=== PATIENT | female | born 1995 | race Two or more races ===

== ENCOUNTER 2016-12-21 21:58 | Emergency (ER) | payer OTHER ==
--- NOTE | 2016-12-21 22:18 | EDM.PDOC ---
ED HPI GENERAL MEDICAL PROBLEM - General Chief Complaint: ENT Problem Stated Complaint: POSSIBLE STREP THROAT [id number] Time Seen by Provider: 12/21/16 22:16 Source of Information: Reports: Patient History Limitations: Reports: No Limitations - History of Present Illness INITIAL COMMENTS - FREE TEXT/NARRATIVE: sore throat since yesterday. Throat Pain Score (Numeric/FACES): 4 - Related Data Allergies Allergy/AdvReac Type Severity Reaction Status Date / Time No Known Allergies Allergy Verified 12/21/16 22:15 Home Meds: Home Meds . [No Known Home Meds] 12/21/16 [History] Past Medical History - Past Health History Medical/Surgical History: Denies Medical/Surgical History - Infectious Disease History Infectious Disease History: Reports: Chicken Pox Social & Family History - Tobacco Use Smoking Status *Q: Former Smoker Used Tobacco, but Quit: No - Caffeine Use Caffeine Use: Reports: Coffee, Soda - Recreational Drug Use Recreational Drug Use: No ED ROS ENT - Review of Systems Review Of Systems: ROS reveals no pertinent complaints other than HPI. ED EXAM, ENT - Physical Exam Exam: See Below Exam Limited By: No Limitations General Appearance: Alert, WD/WN, Mild Distress, Other (discomfort) Ears: Normal External Exam, Normal Canal, Hearing Grossly Normal, Normal TMs Nose: Normal Inspection Mouth/Throat: Pharyngeal Erythema Head: Atraumatic Neck: Non-Tender, Full Range of Motion Respiratory/Chest: No Respiratory Distress Cardiovascular: Regular Rate, Rhythm GI/Abdominal: Soft, Non-Tender Neurological: Alert, Oriented, Normal Cognition, Normal Gait, No Motor/Sensory Deficits Psychiatric: Normal Affect, Normal Mood Skin: Warm, Dry, Normal Color Lymphatic: No Adenopathy Course - Vital Signs Last Recorded V/S: Last Vital Signs Temp 36.1 C 12/21/16 22:03 Pulse 72 12/21/16 22:03 Resp 18 12/21/16 22:03 BP 127/76 12/21/16 22:03 Pulse Ox 100 12/21/16 22:03 - Orders/Labs/Meds Orders: Active Orders 24 hr Category Date Time Status CULTURE STREP A CONFIRMATION [RM] Stat Lab 12/21/16 22:12 Results STREP SCRN A RAPID W CULT CONF [RM] Stat Lab 12/21/16 22:12 Results - Re-Assessments/Exams Free Text/Narrative Re-Assessment/Exam: 12/21/16 22:29 results discussed with pt. Departure - Departure Time of Disposition: 22:29 Disposition: Home, Self-Care 01 Condition: Good Clinical Impression: Tonsillitis - Discharge Information Instructions: Tonsillitis, [id number] Forms: ED Department Discharge Additional Instructions: 1) avoid solid foods and scratchy foods 2) sleep as much as possible 3) follow up at clinic or recheck as needed rx given; z-ganga - My Orders Last 24 Hours: My Active Orders 12/21/16 22:12 CULTURE STREP A CONFIRMATION [RM] Stat STREP SCRN A RAPID W CULT CONF [RM] Stat - Assessment/Plan Last 24 Hours: My Active Orders 12/21/16 22:12 CULTURE STREP A CONFIRMATION [RM] Stat STREP SCRN A RAPID W CULT CONF [RM] Stat
[2016-12-21] MEDS ORDERED: Azithromycin 250 MG Tab PO ONE (22:33)
== END 2016-12-21 22:41 | disposition home or self-care (01) ==
LOC: DL.ED 21:58
DX: J03.90 Acute tonsillitis, unspecified (principal); Z87.891 Personal history of nicotine dependence
CPT/HCPCS: 87081; 87430; 99283; A9270

== ENCOUNTER 2016-12-23 19:20 | Emergency (ER) | payer OTHER ==
[2016-12-23] MEDS ORDERED: Ondansetron 4 MG Tab.DIS PO ONE ×2 (19:21→19:32)
[2016-12-23] MEDS ORDERED: Ondansetron 4 MG Tab.DIS ONE (19:33)
--- NOTE | 2016-12-23 19:36 | EDM.PDOC ---
ED HPI GENERAL MEDICAL PROBLEM - General Chief Complaint: General Stated Complaint: ABD PAINS, DIZZINESS [id number] Time Seen by Provider: 12/23/16 19:33 Source of Information: Reports: Patient History Limitations: Reports: No Limitations - History of Present Illness INITIAL COMMENTS - FREE TEXT/NARRATIVE: was here last pm, thought could make it back to work today but unable and got sent home. still nauseous but throat feels much better. Generalized Pain Score (Numeric/FACES): 2 - Related Data Allergies Allergy/AdvReac Type Severity Reaction Status Date / Time No Known Allergies Allergy Verified 12/23/16 19:31 Home Meds: Home Meds . [No Known Home Meds] 12/21/16 [History] Past Medical History - Past Health History Medical/Surgical History: Denies Medical/Surgical History - Infectious Disease History Infectious Disease History: Reports: Chicken Pox Social & Family History - Tobacco Use Smoking Status *Q: Never Smoker Used Tobacco, but Quit: No Second Hand Smoke Exposure: No - Caffeine Use Caffeine Use: Reports: None - Recreational Drug Use Recreational Drug Use: No ED ROS GENERAL - Review of Systems Review Of Systems: ROS reveals no pertinent complaints other than HPI. ED EXAM, GENERAL - Physical Exam Exam: See Below Exam Limited By: No Limitations General Appearance: Alert, WD/WN, Mild Distress, Other (discomfort) Ears: Hearing Grossly Normal Throat/Mouth: Normal Voice, No Airway Compromise Head: Atraumatic Neck: Non-Tender, Full Range of Motion Respiratory/Chest: No Respiratory Distress Cardiovascular: Regular Rate, Rhythm GI/Abdominal: Soft, Non-Tender, Other (minor periumb discomfort) Neurological: Alert, Oriented, Normal Cognition, Normal Gait, No Motor/Sensory Deficits Psychiatric: Normal Affect, Normal Mood Skin Exam: Warm, Dry, Normal Color Lymphatic: No Adenopathy Course - Vital Signs Last Recorded V/S: Last Vital Signs Temp 36.0 C 12/23/16 19:26 Pulse 68 12/23/16 19:26 Resp 18 12/23/16 19:26 BP 125/60 12/23/16 19:26 Pulse Ox 100 12/23/16 19:26 - Orders/Labs/Meds Orders: Active Orders 24 hr Category Date Time Status Ondansetron [Zofran ODT] Med 12/23/16 19:32 Once 4 mg PO ONETIME ONE Departure - Departure Time of Disposition: 19:35 Disposition: Home, Self-Care 01 Condition: Good Clinical Impression: Tonsillitis - Discharge Information Additional Instructions: 1) sleep as much as possible 2) drink lots of liquids 3) recheck as needed rx jenno; zofran 4mg ODT bid prn x 2 - My Orders Last 24 Hours: My Active Orders 12/23/16 19:32 Ondansetron [Zofran ODT] 4 mg PO ONETIME ONE - Assessment/Plan Last 24 Hours: My Active Orders 12/23/16 19:32 Ondansetron [Zofran ODT] 4 mg PO ONETIME ONE
== END 2016-12-23 19:38 | disposition home or self-care (01) ==
LOC: DL.ED 19:20
DX: J03.90 Acute tonsillitis, unspecified (principal); R10.33 Periumbilical pain
CPT/HCPCS: 99283; A9270

== ENCOUNTER 2017-04-07 13:58 | Emergency (ER) | payer MEDICAID, OTHER ==
[2017-04-07] MEDS ORDERED: Lidocaine 2% Viscous Solution 15 ML Cup PO ONE (14:37)
--- NOTE | 2017-04-07 15:09 | EDM.PDOC ---
Scribed by Nidia Dennis 04/07/17 0007 for Christopher Cantrell MD ED HPI GENERAL MEDICAL PROBLEM - General Chief Complaint: ENT Problem Stated Complaint: TOOTH ACHE Time Seen by Provider: 04/07/17 14:24 Source of Information: Reports: Patient, RN, RN Notes Reviewed History Limitations: Reports: No Limitations - History of Present Illness INITIAL COMMENTS - FREE TEXT/NARRATIVE: Patient presents with complaint of dental pain to the right lower molar for 2 days. She had a large cavity at that location and had a filling placed there recently, but the filling fell out after a couple of days. Denies any swelling or drainage. She has not been taking any medications because she is 5 weeks . 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 ED EXAM, ENT - Physical Exam Exam: See Below Exam Limited By: No Limitations General Appearance: Alert, WD/WN, No Apparent Distress Eye Exam: Bilateral Eye: Normal Inspection Nose: Normal Inspection, Normal Mucousa, No Blood Mouth/Throat: Normal Gums, Normal Lips, Normal Oropharynx, Dental Pain (with deep caries at Rt mandibular molar (tooth #3)). No: Dental Abcess, Gum Swelling Head: Atraumatic, Normocephalic Neck: Normal Inspection, Supple, Non-Tender, Full Range of Motion. No: Lymphadenopathy (L), Lymphadenopathy (R) Respiratory/Chest: No Respiratory Distress Neurological: Alert, No Motor/Sensory Deficits Psychiatric: Normal Mood Skin: Warm, Dry, Intact, Normal Color, No Rash ED ENT PROCEDURES - Additional/Other Procedure(s) Other (Free Text) Procedure(s): Temp. filling placed at deep caries of Rt mandibular molar (Tooth #3) using Temperex. Course - Vital Signs Last Recorded V/S: Last Vital Signs Temp 36.6 C 04/07/17 14:14 Pulse 61 04/07/17 14:14 Resp 20 04/07/17 14:14 BP 120/71 04/07/17 14:14 Pulse Ox 100 04/07/17 14:14 - Orders/Labs/Meds Meds: Medications Discontinued Medications Generic Name Dose Route Start Last Admin Trade Name Freq PRN Reason Stop Dose Admin Lidocaine HCl 15 ml 04/07/17 14:37 04/07/17 14:58 Xylocaine 2% Viscous PO 04/07/17 14:38 15 ml ONETIME ONE Administration Departure - Departure Time of Disposition: 14:59 Disposition: Home, Self-Care 01 Condition: Good Clinical Impression: Dental caries - Discharge Information Instructions: Dental Caries, [id number] Forms: ED Department Discharge Additional Instructions: Vicous lidocaine 2%: apply small amount to affected tooth or gums every 2 to 4 as needed for pain. Follow up with dentist at first available appointment. I have read and agree with the documentation that has been completed regarding this visit. By signing this record, I attest that the documentation was completed in my physical presence and is an accurate record of the encounter.
== END 2017-04-07 15:09 | disposition home or self-care (01) ==
LOC: DL.ED 13:58
DX: O99.611 Diseases of the digestive system complicating pregnancy, first trimester (principal); K02.9 Dental caries, unspecified; Z3A.01 Less than 8 weeks gestation of pregnancy
CPT/HCPCS: 99282; A9270

== ENCOUNTER 2017-04-18 01:56 | Emergency (ER) | payer MEDICAID ==
[2017-04-18] MEDS ORDERED: Lidocaine 2% Viscous Solution 15 ML Cup PO ONE (01:57)
[2017-04-18] MEDS ORDERED: Cephalexin 500 MG Cap PO ONE (01:57)
--- NOTE | 2017-04-18 02:39 | EDM.PDOC ---
ED HPI GENERAL MEDICAL PROBLEM - General Chief Complaint: ENT Problem Stated Complaint: TOOTH PAIN [id number] Time Seen by Provider: 04/18/17 02:28 Source of Information: Reports: Patient History Limitations: Reports: No Limitations - History of Present Illness INITIAL COMMENTS - FREE TEXT/NARRATIVE: ED with c/o right lower tooth pain. Was seen recently for same and to dentist one week ago. Completed antibiotic. Pain started getting worse Sunday. Has not attempted to follow up with dentist a second time. Jaw feels swollen and " like there is a pus pocket by tooth" N fever or chills. 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 ED EXAM, ENT - Physical Exam Exam: See Below Exam Limited By: No Limitations General Appearance: Alert, Mild Distress Eye Exam: Bilateral Eye: EOMI Ears: Normal External Exam Mouth/Throat: Dental Pain (Right lower 2nd molar, mild swelling at jaw line, Poor dentation), Dental Tenderness Head: Atraumatic, Normocephalic Neck: Normal Inspection, Lymphadenopathy (R) Respiratory/Chest: No Respiratory Distress, Lungs Clear Cardiovascular: Normal Peripheral Pulses, Regular Rate, Rhythm Extremities: Normal Inspection Neurological: Alert, Oriented Skin: Warm Course - Vital Signs Last Recorded V/S: Last Vital Signs Temp 98 F 04/18/17 02:01 Pulse 61 04/18/17 02:01 Resp 18 04/18/17 02:01 BP 129/71 04/18/17 02:01 Pulse Ox 100 04/18/17 02:01 Departure - Departure Time of Disposition: 02:40 Disposition: Home, Self-Care 01 Condition: Good Clinical Impression: Dental abscess - Discharge Information Instructions: Dental Abscess, [id number] Additional Instructions: Follow up with dentist in am keflex 500mg one three times daily for one week viscous lidocaine 2%, apply thin layer around affected tooth up to 4 times daily tylenol for discomfort
[2017-04-18] MEDS ORDERED: Lidocaine 2% Viscous Solution 15 ML Cup ONE (02:48)
[2017-04-18] MEDS ORDERED: Cephalexin 500 MG Cap ONE (02:48)
== END 2017-04-18 03:14 | disposition home or self-care (01) ==
LOC: DL.ED 01:56
DX: O99.611 Diseases of the digestive system complicating pregnancy, first trimester (principal); K04.7 Periapical abscess without sinus; Z3A.01 Less than 8 weeks gestation of pregnancy
CPT/HCPCS: 99282; A9270

== ENCOUNTER 2017-11-22 09:47 | Inpatient (IN) | payer MEDICAID ==
[~2017-11-22 09:47] MED LIST: Acetaminophen 325 MG Tab PO PRN; Carboprost Tromethamine 250 MCG/1 ML Amp IM PRN; Lactated Ringers 500 ML IV ONE; Lidocaine 1% 30 ML SDV INJECT PRN; Methylergonovine 0.2 MG/1 ML Amp IM PRN; Misoprostol 400 MCG (4 X 100 MCG TAB) RECTAL PRN; Nalbuphine 10 MG/1 ML Vial IM PRN; Ondansetron 4 MG/2 ML SDV IV PRN; Oxytocin/Normal Saline 30 UNIT/500 ML BAG IV SCH; Sodium Chloride 0.9% 10 ML Syringe FLUSH PRN; Tranexamic Acid 1,000 MG in Sodium Chloride 0.9% 100 ML IV PRN; fentaNYL 100 MCG/2 ML SDV IVPUSH PRN
[2017-11-22] MEDS: Lactated Ringers 1,000 ML IV SCH ×5 (11:22→22:49)
[2017-11-22] MEDS ORDERED: EPINEPHrine 1 MG/ML SDV ONE (16:12)
[2017-11-22] MEDS ORDERED: fentaNYL 100 MCG/2 ML SDV ONE (16:12)
[2017-11-22] MEDS ORDERED: Bupivacaine 0.75%/D5W 2 ML Amp ONE (16:12)
--- NOTE | 2017-11-22 16:37 | PCM.SN ---
- Free Text/Narrative Note: Intrathecal, sitting position, sterile prep and drape. 1% lidocaine w bicarb for skinwheal to L2 L3 interspace, introducer, 24 ga pencan x 1. Pos CSF neg heme, neg parasthesia. 15 mcg pf sufenta, 0.1 ml pf 1:1000 pf epi, 35 mcg pf fentanyl, 0.4 ml pf ns and 6 mg of 0.75% pf bupivacaine injected after CSf aspiration. Pt to L lateral position. Procedure time 1615 to 1650
[2017-11-22] MEDS ORDERED: Famotidine 20 MG/2 ML SDV IVPUSH STA (19:49)
[2017-11-22] MEDS ORDERED: Benzocaine/Menthol 20%-0.5% Spray 56 GM Canister TOP PRN (21:18)
[2017-11-22] MEDS ORDERED: Simethicone 80 MG Tab.Chew PO PRN (21:18)
[2017-11-22] MEDS ORDERED: Measles, Mumps & Rubella Vaccine 0.5 ML SDV SUBCUT ONE (21:31)
--- NOTE | 2017-11-22 21:47 | PCM.DEL ---
L & D Note - General Info Date of Service: 11/22/17 (See dictated note. ) Vacuum Extractor Progress Note - Alternative Labor Strategies Considered Alternative Labor Strategies Considered:: Reports: Yes Strategies Considered:: Reports: Contraction Intensity Adequate, Position Changes Used to Facilitate Rotation & Descent, Empty Bladder, Rest (ALready labored magui for 2 hours and anesthesia was going to wear off. ) Indications Considered:: Reports: Yes Indications:: Reports: Suspicion of Immediate or Potential Compromise Time Out:: Reports: Yes - Patient Prepared Patient Prepared:: Reports: Yes Informed Consent:: Reports: Yes, Verbal Risks: Reports: Yes Risks Include:: Reports: Laceration, Shoulder Dystocia, Maternal Injury, Other ( Injury.) Anesthesia/Analgesia Adequate:: Reports: Yes - Probability of Success High Probability of Success:: Reports: Yes Weight Estimated:: Reports: AGA Patient Diabetic:: Reports: No Pelvis Adequate:: Reports: Yes Asynclitic:: Reports: No - Application Time Maximum Application Time & Number of Pop-Offs Predetermined:: Reports: Yes Total Application Time (min): *max=20min: 17 Number of Times Cup Disengaged:: 0 Type of Vacuum Used:: Reports: Cup: Rigid Vacuum Extraction: Successful - Exit Strategy Exit strategy available:: Reports: Yes and resuscitation teams readily available:: Reports: Yes Consult as indicated:: Dr. Teagan Hair CRNA in the room. - General Info Date of Service: 11/22/17 (See dictated delivery note. ) - Patient Data Vitals - Most Recent: Last Vital Signs Temp 98.3 F 11/22/17 15:50 Pulse 78 11/22/17 17:30 Resp 16 11/22/17 17:00 BP 106/50 L 11/22/17 17:30 Pulse Ox 100 11/22/17 17:00 Weight - Most Recent: 78.471 kg Lab Results Last 24 Hours: Laboratory Results - last 24 hr 11/22/17 Range/Units 10:28 WBC 11.1 H (5.0-10.0) 10^3/uL RBC 4.06 L (4.2-5.4) 10^6/uL Hgb 13.1 (12.0-16.0) g/dL Hct 37.9 (37.0-47.0) % MCV 93.3 (80-100) fL MCH 32.3 (27.0-34.0) pg MCHC 34.6 (33.0-35.0) g/dL Plt Count 166 (150-450) 10^3/uL Med Orders - Current: Current Medications Acetaminophen (Tylenol) 650 mg PO Q4H PRN PRN Reason: Pain (Mild 1-3) and fever Benzocaine/Menthol (Dermoplast Pain Relief [place]) 0 gm TOP Q4H PRN PRN Reason: Perineal comfort measures Carboprost Tromethamine (Hemabate Ds) 250 mcg IM ASDIRECTED PRN PRN Reason: HEMORRHAGE Docusate Sodium (Colace) 100 mg PO BID PRN PRN Reason: Constipation Fentanyl (Sublimaze) 50 mcg IVPUSH Q1H PRN PRN Reason: Pain (moderate 4-6) Ferrous Sulfate (Ferrous Sulfate) 325 mg PO WITHBREAKFAST DANICA Lactated Ringer's (Ringers, Lactated) 1,000 mls @ 125 mls/hr IV ASDIRECTED DANICA Last Admin: 11/22/17 20:10 Dose: 125 mls/hr Oxytocin/Sodium Chloride (Pitocin In Ns 30 Unit/500 Ml) 30 unit in 500 mls @ 2 mls/hr IV TITRATE DANICA; Protocol Last Titration: 11/22/17 20:36 Dose: 250 munits/min, 250 mls/hr Tranexamic Acid 1,000 mg/ (Sodium Chloride) 110 mls @ 660 mls/hr IV ONETIME PRN PRN Reason: Bleeding Ibuprofen (Motrin) 800 mg PO Q8H PRN PRN Reason: Mild Pain or Fever Lidocaine HCl (Xylocaine-Mpf 1%) 10 ml INJECT ASDIRECTED PRN PRN Reason: Perineal Repair Measles/Mumps/Rubella Vaccine Live (M-M-R Ii Vaccine) 0.5 ml SUBCUT .ONCE ONE Stop: 11/22/17 21:32 Methylergonovine Maleate (Methergine) 0.2 mg IM ASDIRECTED PRN PRN Reason: Hemorrhage Misoprostol (Cytotec) 800 mcg RECTAL ASDIRECTED PRN PRN Reason: Hemorrhage Nalbuphine HCl (Nubain) 20 mg IM ONETIME PRN PRN Reason: Pain Ondansetron HCl (Zofran) 4 mg IV Q4H PRN PRN Reason: Nausea/Vomiting Last Admin: 11/22/17 16:15 Dose: 4 mg Prenat Multivit/Marlin/Iron/Folic Ac ( Plus Iron) 1 each PO DAILY DANICA Simethicone (Simethicone) 80 mg PO Q4H PRN PRN Reason: Gas Sodium Chloride (Saline Flush) 10 ml FLUSH ASDIRECTED PRN PRN Reason: Keep Vein Open Discontinued Medications Bupivacaine HCl/Dextrose (Marcaine 0.75% Spinal) Confirm Administered Dose 2 ml .ROUTE .STK-MED ONE Stop: 11/22/17 16:13 Last Admin: 11/22/17 16:29 Dose: Not Given Epinephrine HCl (Adrenalin) Confirm Administered Dose 1 mg .ROUTE .STK-MED ONE Stop: 11/22/17 16:13 Last Admin: 11/22/17 16:29 Dose: Not Given Famotidine (Pepcid) 20 mg IVPUSH ONETIME STA Stop: 11/22/17 19:50 Last Admin: 11/22/17 19:55 Dose: 20 mg Fentanyl (Sublimaze) Confirm Administered Dose 100 mcg .ROUTE .STK-MED ONE Stop: 11/22/17 16:13 Last Admin: 11/22/17 16:29 Dose: Not Given Lactated Ringer's (Ringers, Lactated) 500 mls @ 999 mls/hr IV .BOLUS ONE Stop: 11/22/17 10:13 Sodium Bicarbonate (Sodium Bicarbonate 4.2%) Confirm Administered Dose 5 meq .ROUTE .STK-MED ONE Stop: 11/22/17 16:14 Last Admin: 11/22/17 16:32 Dose: Not Given Sufentanil Citrate (Sufenta) Confirm Administered Dose 50 mcg .ROUTE .STK-MED ONE Stop: 11/22/17 16:13 Last Admin: 11/22/17 16:29 Dose: Not Given - Problem List Review Problem List Initiated/Reviewed/Updated: No - My Orders Last 24 Hours: My Active Orders 11/22/17 09:43 Patient Status [ADT] Routine Communication Order [RC] ASDIRECTED Notify Provider Vital Signs OB [RC] ASDIRECTED Notify Provider [RC] PRN Up ad Anabella [RC] ASDIRECTED Vital Signs [RC] PER UNIT ROUTINE Acetaminophen [Tylenol] 650 mg PO Q4H PRN Carboprost Tromethamine [Hemabate DS] 250 mcg IM ASDIRECTED PRN Lidocaine 1% [Xylocaine-MPF 1%] 10 ml INJECT ASDIRECTED PRN Methylergonovine [Methergine] 0.2 mg IM ASDIRECTED PRN Ondansetron [Zofran] 4 mg IV Q4H PRN Sodium Chloride 0.9% [Saline Flush] 10 ml FLUSH ASDIRECTED PRN Tranexamic Acid [Cyklokapron] 1,000 mg Sodium Chloride 0.9% [Normal Saline] 100 ml IV ONETIME fentaNYL [Sublimaze] 50 mcg IVPUSH Q1H PRN miSOPROStol [Cytotec] 800 mcg RECTAL ASDIRECTED PRN Saline Lock Insert [OM.PC] Routine Resuscitation Status Routine 11/22/17 09:44 Pump Management, Intrathecal [RC] ASDIRECTED 11/22/17 09:45 Lactated Ringers [Ringers, Lactated] 1,000 ml IV ASDIRECTED Nalbuphine [Nubain] 20 mg IM ONETIME PRN Oxytocin/Normal Saline [Pitocin in NS 30 UNIT/500 ML] 30 unit in 500 ml IV TITRATE 11/22/17 21:16 Patient Status Manage Transfer [TRANSFER] Routine 11/22/17 21:18 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 to 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 [CONS] Routine Benzocaine/Menthol [Dermoplast Pain Relief [place]] See Dose Instructions TOP Q4H PRN Docusate Sodium [Colace] 100 mg PO BID PRN Ibuprofen [Motrin] 800 mg PO Q8H PRN Simethicone 80 mg PO Q4H PRN 11/22/17 21:19 Up ad Anabella [RC] ASDIRECTED Vital Signs [RC] PFP Assess Lochia [WOMSER] Per Unit Routine Assess Uterine Involution [WOMSER] Per Unit Routine Breast Pump [WOMSER] Per Unit Routine Ice Therapy [OM.PC] Per Unit Routine Perineal Care [OM.PC] Per Unit Routine Sitz Bath [OM.PC] Per Unit Routine 11/22/17 21:31 Vaccines to be Administered [RC] PER UNIT ROUTINE Measles, Mumps & Rubella [M-M-R II Vaccine] 0.5 ml SUBCUT .ONCE ONE 11/22/17 Dinner Regular Diet [DIET] 11/22/17 Lunch Clear Liquid Diet [DIET] 11/23/17 08:00 CBC W/O DIFF,HEMOGRAM [HEME] Routine Ferrous Sulfate 325 mg PO WITHBREAKFAST 11/23/17 09:00 Vit with Ca/FA/Iron [ Plus Iron] 1 each PO DAILY
[2017-11-22] MEDS: Docusate Sodium 100 MG Cap PO PRN (22:35)
[2017-11-22] MEDS: Ibuprofen 800 MG Tab PO PRN (22:35)
--- NOTE | 2017-11-23 01:42 | DEL ---
DATE: 11/22/2017 PREPROCEDURE DIAGNOSES: 1. A 37 and 1/7 weeks' intrauterine based on last menstrual period. 2. 1, para 0. 3. Premature rupture of membranes times 11-1/2 hours. Blood type B positive. Rubella nonimmune. Group B streptococcus negative. 4. Back pain of . 5. Bacterial vaginosis, treated in the 1st and 2nd trimesters. 6. History of dental abscesses during the . POSTPROCEDURE DIAGNOSES: 1. A 37 and 1/7 weeks' intrauterine based on last menstrual period. 2. 1, para 1. 3. Premature rupture of membranes ivemc47-4/2 hours. Blood type B positive. Rubella nonimmune. Group B streptococcus negative. 4. Back pain of . 5. Bacterial vaginosis, treated in the 1st and 2nd trimesters. 6. History of dental abscesses during the . 7. intolerance of stage II labor, requiring vacuum assistance. BRIEF HISTORY: A 22-year-old female presented to the clinic this morning after spontaneous rupture of membranes with clear fluid at around 6:30 this morning. Her cervix had not changed from previous exams, and she was sent to the hospital for induction of labor with Pitocin, which was carried out quite nicely when she was about 6 cm dilated. She received an intrathecal for pain management, and during that time, the lowest post intrathecal blood pressure was 98/43. However, baby did have a 12 minute deceleration during that time, and she went from the 6 cm dilated to complete within about 45 minutes. We had trialed a couple of practice pushes after that and baby had late decelerations down into the 90s lasting a minute each, and therefore, we let her labor down about 2 hours before trying pushes again. At that time, baby's station really had not changed very much from before. She was catheterized for 600 mL of clear urine. Baby was having decelerations down into the 90s again after contractions, and we tried changing positions for pushing,and the baby tolerated that better for a few contractions and then started to have decelerations down into the 90s again. Decision was made to apply vacuum for assisted delivery because of intolerance and need to expedite delivery due to concern for well being. Alternative labor strategies were considered including position changes, which had not helped. Contraction strength was adequate. Mother's pushing efforts were suboptimal; however, the best that she could do. The patient was prepared, and I discussed with her the indications, risks, benefits, and alternatives. Anesthesia was also adequate with her intrathecal still working fairly well. There was a high probability of success with estimated appropriate for gestational age and adequate feeling of the pelvis. The baby was in KEVIN position and not felt to be asynclitic, station was +2, application time maximum, and pop-off limit was reviewed. We need to keep the pressure maintained in the green zone at 450 to 600 mmHg with contractions and release it down to 100 between contractions and also not to exceed the pulling pressure on the manometer. Vacuum type used was an OmniCup. Exit strategy was readily available. The operating room crew was in-house and ready to open. The sand buffer was in the delivery room as well. DESCRIPTION OF PROCEDURE: With the patient in the dorsal lithotomy position, we delivered a viable male in the KEVIN position over an intact perineum with vacuum assistance. After delivery of the head and shoulders there was a slight delay with delivery of the body. Baby's initial tone was poor, but not absent. Color was pale, and he was making poor respiratory effort. He was immediately placed up on mother's abdomen, bulb suctioned, dried, and stimulated while the 3-vessel umbilical cord was doubly clamped and then cut, and baby taken to the warmer for further resuscitative efforts. Cord blood sample was obtained, and placenta was delivered by gentle cord traction and concomitant uterine massage. After approximately 5 minutes. It was inspected and intact. Attention then returned to the mother, and she had a right labial laceration that did not require repair as it was hemostatic. She also had a long, approximate 8 to 9 cm right vaginal sulcus tear, which was repaired with 3-0 Vicryl in the usual fashion. I did need to use Gelpi and [place] in order to maintain adequate visualization. The perineal area had a small first-degree tear, which was repaired with a single stitch and came together nicely. Hemostasis was verified. There were no other lacerations requiring repair. The patient tolerated the procedure well. ESTIMATED BLOOD LOSS: 400 mL. COMPLICATIONS: None. FINDINGS: Viable male infant. scores to be determined. Weight 3105 g, 6 pounds 14 ounces. Head circumference 13 inches. Chest circumference 12-1/2 inches. Expected head circumference and length measurements may change after his caput molding, reduce. [facility] /[id number] MTDD
[2017-11-23] MEDS: Ferrous Sulfate 325 MG Tab PO SCH (07:51)
[2017-11-23] MEDS: Ibuprofen 800 MG Tab PO PRN ×2 (07:51→18:33)
[2017-11-23] MEDS: Docusate Sodium 100 MG Cap PO PRN ×2 (07:51→21:36)
[2017-11-23] MEDS: Prenatal Multivitamin with Calcium/Folic Acid/Iron Tab PO SCH (08:38)
--- NOTE | 2017-11-23 08:49 | PN ---
DATE: 11/23/2017 SUBJECTIVE: delivery day #1. The patient is doing well. She has not been up and ambulating and notices some swelling and soreness of the perineal area as would be expected. ; she is making plenty of breast milk, but baby is having some difficulties with latch and will be working with the retail sales vitamin consultant today. Otherwise, she is tolerating regular diet. Blood flow has been well controlled. She has no chest pain or shortness of breath. No symptoms of preeclampsia. No other acute concerns. OBJECTIVE: General: A pleasant, well-appearing, 22-year-old female. Vital Signs: Temperature is 98.0, pulse 76, and blood pressure is 117/58. Heart: Regular without murmur. Lungs: Clear to auscultation bilaterally. Abdomen: Soft and nontender. Fundus is firm and below the umbilicus. Extremities: No edema, erythema, or tenderness noted. LABORATORY DATA: Hemoglobin is down to 11.8 from an admission of 13.1; platelets are at 170. ASSESSMENT: 1. Vacuum-assisted vaginal delivery, day #1 with repair of vaginal sulcus tear. 2. 1, now para 1. 3. Blood type B positive, rubella nonimmune, and group B streptococcus negative. MMR vaccine was ordered. 4. Back pain of should be resolved. 5. Mild anemia of acute blood loss. PLAN: Continue normal cares with extra support. Anticipate the patient will be discharged over the weekend. Dr. Teran and Dr. Abdi will be following her, and I will see her back for her 6-week visit and also be able to check in on her when she brings her baby in for well- check. [facility] /[id number] LÁZARO
[2017-11-23] MEDS ORDERED: EPINEPHrine 1 MG/ML SDV IV ONE (11:17)
[2017-11-23] MEDS ORDERED: Bupivacaine 0.75%/D5W 2 ML Amp INJECT ONE (11:17)
[2017-11-23] MEDS ORDERED: fentaNYL 100 MCG/2 ML SDV ITHECAL ONE (11:17)
[2017-11-24] MEDS: Docusate Sodium 100 MG Cap PO PRN (07:31)
[2017-11-24] MEDS: Ibuprofen 800 MG Tab PO PRN (07:32)
[2017-11-24] MEDS: Ferrous Sulfate 325 MG Tab PO SCH (07:32)
[2017-11-24] MEDS: Prenatal Multivitamin with Calcium/Folic Acid/Iron Tab PO SCH ×2 (07:32→09:56)
--- NOTE | 2017-11-24 10:31 | PCM.PNPP ---
- General Info Date of Service: 11/24/17 Admission Dx/Problem (Free Text): PROM Subjective Update: Rena is a 22 year-old PPD2 from vacuum-assisted vaginal delivery. Lochia is mild in degree. She is tolerating a general diet. She is voiding without difficulty. Has not yet had a BM. She is having some back pain around the location where the intrathecal was placed. Also complaining of a mild headache this morning. She was given ibuprofen with improvement of her symptoms. She denies fevers, chills, SOB, abdominal pain, leg pain or edema. Functional Status: Reports: Pain Controlled, Tolerating Diet, Ambulating, Urinating - Review of Systems Systems Review Comment:: See HPI - General Info Date of Service: 11/24/17 - Patient Data Vital Signs - Most Recent: Last Vital Signs Temp 98.3 F 11/24/17 08:00 Pulse 62 11/24/17 08:00 Resp 16 11/24/17 08:00 BP 101/43 L 11/24/17 08:00 Pulse Ox 98 11/24/17 08:00 Weight - Most Recent: 173 lb Med Orders - Current: Current Medications Acetaminophen (Tylenol) 650 mg PO Q4H PRN PRN Reason: Pain (Mild 1-3) and fever Last Admin: 11/23/17 18:31 Dose: 650 mg Benzocaine/Menthol (Dermoplast Pain Relief [place]) 0 gm TOP Q4H PRN PRN Reason: Perineal comfort measures Last Admin: 11/22/17 22:36 Dose: 1 spray Docusate Sodium (Colace) 100 mg PO BID PRN PRN Reason: Constipation Last Admin: 11/24/17 07:31 Dose: 100 mg Ferrous Sulfate (Ferrous Sulfate) 325 mg PO WITHBREAKFAST DANICA Last Admin: 11/24/17 07:32 Dose: 325 mg Ibuprofen (Motrin) 800 mg PO Q8H PRN PRN Reason: Mild Pain or Fever Last Admin: 11/24/17 07:32 Dose: 800 mg Prenat Multivit/Vacuum Caster/Iron/Folic Ac ( Plus Iron) 1 each PO DAILY DANICA Last Admin: 11/24/17 09:56 Dose: Not Given Simethicone (Simethicone) 80 mg PO Q4H PRN PRN Reason: Gas Sodium Chloride (Saline Flush) 10 ml FLUSH ASDIRECTED PRN PRN Reason: Keep Vein Open Last Admin: 11/22/17 22:52 Dose: 10 ml Discontinued Medications Bupivacaine HCl/Dextrose (Marcaine 0.75% Spinal) Confirm Administered Dose 2 ml .ROUTE .STK-MED ONE Stop: 11/22/17 16:13 Last Admin: 11/22/17 16:29 Dose: Not Given Bupivacaine HCl/Dextrose (Marcaine 0.75% Spinal) 0.8 ml INJECT .STK-MED ONE Stop: 11/23/17 11:18 Carboprost Tromethamine (Hemabate Ds) 250 mcg IM ASDIRECTED PRN PRN Reason: HEMORRHAGE Epinephrine HCl (Adrenalin) Confirm Administered Dose 1 mg .ROUTE .STK-MED ONE Stop: 11/22/17 16:13 Last Admin: 11/22/17 16:29 Dose: Not Given Epinephrine HCl (Adrenalin) 0.1 mg IV .STK-MED ONE Stop: 11/23/17 11:18 Famotidine (Pepcid) 20 mg IVPUSH ONETIME STA Stop: 11/22/17 19:50 Last Admin: 11/22/17 19:55 Dose: 20 mg Fentanyl (Sublimaze) 50 mcg IVPUSH Q1H PRN PRN Reason: Pain (moderate 4-6) Fentanyl (Sublimaze) Confirm Administered Dose 100 mcg .ROUTE .STK-MED ONE Stop: 11/22/17 16:13 Last Admin: 11/22/17 16:29 Dose: Not Given Fentanyl (Sublimaze) 35 mcg ITHECAL .STK-MED ONE Stop: 11/23/17 11:18 Lactated Ringer's (Ringers, Lactated) 500 mls @ 999 mls/hr IV .BOLUS ONE Stop: 11/22/17 10:13 Last Admin: 11/22/17 23:39 Dose: Not Given Lactated Ringer's (Ringers, Lactated) 1,000 mls @ 125 mls/hr IV ASDIRECTED DANICA Last Admin: 11/22/17 22:49 Dose: 125 mls/hr Oxytocin/Sodium Chloride (Pitocin In Ns 30 Unit/500 Ml) 30 unit in 500 mls @ 2 mls/hr IV TITRATE DANICA; Protocol Last Titration: 11/22/17 22:48 Dose: 0 munits/min, 0 mls/hr Tranexamic Acid 1,000 mg/ (Sodium Chloride) 110 mls @ 660 mls/hr IV ONETIME PRN PRN Reason: Bleeding Lidocaine HCl (Xylocaine-Mpf 1%) 10 ml INJECT ASDIRECTED PRN PRN Reason: Perineal Repair Lidocaine HCl (Xylocaine-Mpf 1%) 3 ml INJECT .STK-MED ONE Stop: 11/23/17 11:18 Measles/Mumps/Rubella Vaccine Live (M-M-R Ii Vaccine) 0.5 ml SUBCUT .ONCE ONE Stop: 11/22/17 21:32 Last Admin: 11/22/17 22:36 Dose: 0.5 ml Methylergonovine Maleate (Methergine) 0.2 mg IM ASDIRECTED PRN PRN Reason: Hemorrhage Misoprostol (Cytotec) 800 mcg RECTAL ASDIRECTED PRN PRN Reason: Hemorrhage Nalbuphine HCl (Nubain) 20 mg IM ONETIME PRN PRN Reason: Pain Ondansetron HCl (Zofran) 4 mg IV Q4H PRN PRN Reason: Nausea/Vomiting Last Admin: 11/22/17 16:15 Dose: 4 mg Sodium Bicarbonate (Sodium Bicarbonate 4.2%) Confirm Administered Dose 5 meq .ROUTE .STK-MED ONE Stop: 11/22/17 16:14 Last Admin: 11/22/17 16:32 Dose: Not Given Sodium Bicarbonate (Sodium Bicarbonate 4.2%) 0.5 meq .XX .STK-MED ONE Stop: 11/23/17 11:18 Sufentanil Citrate (Sufenta) Confirm Administered Dose 50 mcg .ROUTE .STK-MED ONE Stop: 11/22/17 16:13 Last Admin: 11/22/17 16:29 Dose: Not Given Sufentanil Citrate (Sufenta) 15 mcg ITHECAL .STK-MED ONE Stop: 11/23/17 11:18 - Interaction Disposition, : in Room with Family Interaction: Holding , Other (see below) (Bonding appropriately) Infant Feeding: Breastfed ; Nursed Well Support Person: Mother, Significant Other - Recovery Exam Fundal Tone: Firm Fundal Level: 2 Fingerbreadths Below Umbilicus Fundal Placement: Midline Lochia Amount: Small Lochia Color: Rubra/Red Bladder Status: Voiding - Exam General: Alert, Oriented, No Acute Distress Lungs: Clear to Auscultation, Normal Respiratory Effort Cardiovascular: Regular Rate, Regular Rhythm GI/Abdominal Exam: Normal Bowel Sounds, Soft, Non-Tender Extremities: Normal Inspection, Non-Tender, No Pedal Edema Skin: Warm, Dry, Intact Neurological: No New Focal Deficit - Problem List & Annotations (1) Status post vacuum-assisted vaginal delivery SNOMED Code(s): 798518096, [id number] Code(s): Z87.42 - PERSONAL HISTORY OF OTH DISEASES OF THE FEMALE GENITAL TRACT Status: Acute Current Visit: Yes - Problem List Review Problem List Initiated/Reviewed/Updated: Yes - Assessment Assessment:: Rena is a 22 year-old PPD2 from vacuum-assisted vaginal delivery. Doing well. - Plan Plan:: Discharge to home. Follow-up appointment with Dr. Rey has been arranged for Sunday (11/26).
--- NOTE | 2017-11-24 11:59 | DISCH ---
HISTORY OF PRESENT ILLNESS: Dr. Rey has thoroughly discussed this patient with me previously and has asked that we round on her and discharge her today, 11/24/2017. Please see Dr. Rey's admission history and physical. This patient was a 22-year-old, 1, now para 1 patient, who was at 37 weeks 5 days' gestation; and she did have premature rupture of membranes at approximately 6:30 a.m. on 11/22/2017. She did come to the hospital after that and did undergo IV Pitocin induction of labor because of her premature rupture of membranes. During her course, she was noted to be B positive for her blood type and not immune to rubella and GBS negative. She also has had intermittent back pain problems off and on during the . She also has a history of dental abscess previously. Also, please see Dr. Rey's dictated operative report. The patient did have a 3-hour stage of first labor and 47-minute stage II. The patient did have a vacuum-assisted vaginal delivery of a viable baby boy, who weighed 6 pounds 14 ounces and had scores of 4 and 7. The patient did have a right vaginal sulcus laceration which was repaired. She has done well in the period. On morning rounds today, the patient does feel like she definitely would like to go home. She does have a mild intermittent headache and some [id number] lower back discomfort. Examination reveals no nuchal rigidity. She does have some slight lumbar back discomfort in the midline, but no CVA tenderness and no coccygeal or tailbone focal tenderness, and she does have some slight sacroiliac joint tenderness. Her vital signs remained very stable with her temperature of 98.3, pulse 62, respirations of 18, and blood pressure 101/43. Her extremity exam is entirely negative. Her uterine fundus is firm. Her discharge hemoglobin is 11.8. Routine instructions are given to her. She will call us at once if any questions or problems or any persistent problem of headache, back discomfort, excess vaginal bleeding, pelvic or abdominal pain, or fever. She will do gradual progressive ambulation at home. The patient is in the process of establishing appropriate . The importance of healthy well-balanced nutritional measures was also reviewed with her as well as roughage, fiber, and fluid intake to counteract constipation. She does have a followup appointment to see Dr. Rey this coming in the office, and also, her baby boy has an appointment for this coming Sunday; and also at that time, there will be discussion about a possible upcoming circumcision in the near future. As mentioned above, her baby boy continues to do well and is being evaluated by Dr. Samuel and by Dr. Teran. DISCHARGE MEDICATIONS: Consist of ibuprofen or Tylenol p.r.n. for pain. The patient will also use her Dermoplast spray and take Colace or other stool softener p.r.n. constipation. FINAL DIAGNOSES: 1. at 37 weeks 5 days' gestation, delivered. 2. Premature rupture of membranes. 3. Intermittent back pain during . 4. History of dental abscess previously. OPERATIONS AND PROCEDURES: 1. Vacuum-assisted vaginal delivery of a viable baby boy weighing 6 pounds 14 ounces with scores of 4 and 7. 2. Repair of right vaginal sulcus laceration. Please see Dr. Rey's dictated delivery note. [facility] /[id number]
== END 2017-11-24 13:15 | disposition home or self-care (01) | DRG 775 ==
LOC: DL.OB 09:49 → EDSTATUS 09:49 → DL.OB 20:17 → OBSVTOIN 20:17
PROVIDERS: ADMIT Family Medicine; ATTEND Family Medicine
PROC: 0HQ9XZZ Repair Perineum Skin, External Approach (ICD-10-PCS; principal; 2017-11-22)
PROC: 10D07Z6 Extraction of Products of Conception, Vacuum, Via Natural or Artificial Opening (ICD-10-PCS; principal; 2017-11-22)
PROC: 3E033VJ Introduction of Other Hormone into Peripheral Vein, Percutaneous Approach (ICD-10-PCS; principal; 2017-11-22)
PROC: 6A550ZT Pheresis of Cord Blood Stem Cells, Single (ICD-10-PCS; principal; 2017-11-22)
PROC: 3E0R3BZ Introduction of Anesthetic Agent into Spinal Canal, Percutaneous Approach (ICD-10-PCS; principal; 2017-11-22)
PROC: 3E0234Z Introduction of Serum, Toxoid and Vaccine into Muscle, Percutaneous Approach (ICD-10-PCS; 2017-11-22)
DX: O42.92 Full-term premature rupture of membranes, unspecified as to length of time between rupture and onset of labor (principal); D62 Acute posthemorrhagic anemia; O76 Abnormality in fetal heart rate and rhythm complicating labor and delivery; Z3A.37 37 weeks gestation of pregnancy; Z37.0 Single live birth; Z67.20 Type B blood, Rh positive; O70.0 First degree perineal laceration during delivery; R51 Headache; O26.893 Other specified pregnancy related conditions, third trimester; M54.5 Low back pain; O99.02 Anemia complicating childbirth; Z23 Encounter for immunization
CPT/HCPCS: 36415; 51701; 59025; 59300; 59409; 85027; 90471; 90707; A9270-GY; J0171; J2405; J2590; J3010; J3490; J7050; J7120

== ENCOUNTER 2018-06-30 09:33 | Emergency (ER) | payer MEDICAID ==
[2018-06-30] MEDS ORDERED: Sodium Chloride 0.9% 10 ML Syringe FLUSH PRN (09:58)
[2018-06-30 10:42] LABS: ANION GAP 12.8; CHLORIDE,CL 104 mmol/L (101-111); SODIUM,NA 137 mmol/L (135-145)
--- NOTE | 2018-06-30 10:58 | EDM.PDOC ---
Scribed by Nidia Dennis 06/30/18 1041 for Christopher Cantrell MD ED HPI GENERAL MEDICAL PROBLEM - General Chief Complaint: Abdominal Pain Stated Complaint: ABD PAINS Time Seen by Provider: 06/30/18 09:52 Source of Information: Reports: Patient, RN, RN Notes Reviewed History Limitations: Reports: No Limitations - History of Present Illness INITIAL COMMENTS - FREE TEXT/NARRATIVE: Patient presents to ER with complaint of abdominal pain. Patient delivered a baby 2 months ago. She now has right lower quadrant pain. She had an appointment with Dr. Lloyd but did not keep it. She also has Fluoxetine but has not taken for the past couple of days because she was out of town. Onset: Gradual Duration: Constant Location: Reports: Abdomen Quality: Reports: Ache Severity: Moderate Improves with: Reports: None Worsens with: Reports: None Associated Symptoms: Reports: No Other Symptoms Right Lower Abdomen Pain Score (Numeric/FACES): 8 - Related Data Allergies Allergy/AdvReac Type Severity Reaction Status Date / Time No Known Allergies Allergy Verified 06/30/18 09:39 Home Meds: Home Meds FLUoxetine HCl [Fluoxetine HCl] 40 mg PO DAILY 06/30/18 [History] Past Medical History - Past Health History Medical/Surgical History: Denies Medical/Surgical History HEENT History: Reports: None Cardiovascular History: Reports: None Respiratory History: Reports: None Gastrointestinal History: Reports: None Genitourinary History: Reports: Other (See Below) Other Genitourinary History: BV 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: Musculoskeletal History: Reports: None Neurological History: Reports: None Psychiatric History: Reports: Anxiety, Depression Other Psychiatric History: medicated prior to pregancy Endocrine/Metabolic History: Reports: None Hematologic History: Reports: None Immunologic History: Reports: None Oncologic (Cancer) History: Reports: None Dermatologic History: Reports: None - Infectious Disease History Infectious Disease History: Reports: None - Past Surgical History Head Surgeries/Procedures: Reports: None Social & Family History - Family History Family Medical History: Noncontributory - Tobacco Use Smoking Status *Q: Former Smoker Used Tobacco, but Quit: Yes Month/Year Tobacco Last Used: ? - Caffeine Use Caffeine Use: Reports: None - Recreational Drug Use Recreational Drug Use: No - Living Situation & Occupation Living situation: Reports: with Significant Other Occupation: Employed ED ROS GENERAL - Review of Systems Review Of Systems: ROS reveals no pertinent complaints other than HPI. ED EXAM, GI/ABD - Physical Exam Exam: See Below Exam Limited By: No Limitations General Appearance: Alert, WD/WN, No Apparent Distress Eyes: Bilateral: Normal Appearance Throat/Mouth: Normal Inspection Head: Atraumatic, Normocephalic Neck: Normal Inspection Respiratory/Chest: No Respiratory Distress, Lungs Clear, Normal Breath Sounds, No Accessory Muscle Use, Chest Non-Tender Cardiovascular: Regular Rate, Rhythm GI/Abdominal Exam: Normal Bowel Sounds, Soft, No Organomegaly, No Distention, No Abnormal Bruit, No Mass, Tender (Rt lower abdomen and suprapubic region without peritoneal signs.). No: Guarding, Rigid, Rebound (Female) Exam: Deferred Rectal (Female) Exam: Deferred Back Exam: Normal Inspection, Full Range of Motion. No: CVA Tenderness (L), CVA Tenderness (R) Extremities: Normal Inspection. No: Joint Swelling Neurological: Alert, Oriented, Normal Cognition, Normal Gait, No Motor/Sensory Deficits Psychiatric: Normal Affect, Normal Mood Skin Exam: Warm, Dry, Intact, Normal Color, No Rash Course - Vital Signs Last Recorded V/S: Last Vital Signs Temp 36.7 C 06/30/18 09:41 Pulse 60 06/30/18 09:41 Resp 16 06/30/18 09:41 BP 110/55 L 06/30/18 09:41 Pulse Ox 100 06/30/18 09:41 - Orders/Labs/Meds Orders: Active Orders 24 hr Category Date Time Status Peripheral IV Care [RC] . DIRECTED Care 06/30/18 09:58 Active CHLAMYDIA AND GONORRHEA BY TMA Routine Lab 06/30/18 10:16 Received Sodium Chloride 0.9% [Saline Flush] Med 06/30/18 09:58 Active 10 ml FLUSH ASDIRECTED PRN Peripheral IV Insertion Adult [OM.PC] Stat Oth 06/30/18 09:58 Ordered Medication Orders Sodium Chloride (Saline Flush) 10 ml FLUSH ASDIRECTED PRN PRN Reason: Keep Vein Open Last Admin: 06/30/18 10:16 Dose: 10 ml Labs: Laboratory Tests 06/30/18 06/30/18 06/30/18 Range/Units 10:14 10:14 10:14 WBC 9.3 (5.0-10.0) 10^3/uL RBC 4.33 (4.2-5.4) 10^6/uL Hgb 14.2 D (12.0-16.0) g/dL Hct 40.9 (37.0-47.0) % MCV 94.5 (80-100) fL MCH 32.8 (27.0-34.0) pg MCHC 34.7 (33.0-35.0) g/dL Plt Count 176 (150-450) 10^3/uL Neut % (Auto) 78.3 H (42.2-75.2) % Lymph % (Auto) 12.4 L (20.5-50.1) % Coryell % (Auto) 7.8 (2-8) % Eos % (Auto) 1.3 (1.0-3.0) % Baso % (Auto) 0.2 (0.0-1.0) % Sodium 137 (135-145) mmol/L Potassium 3.8 (3.6-5.0) mmol/L Chloride 104 (101-111) mmol/L Carbon Dioxide 24.0 (21.0-31.0) mmol/L Anion Gap 12.8 BUN 12 (7-18) mg/dL Creatinine 0.6 (0.6-1.3) mg/dL Est Cr Clr Drug Dosing 125.92 mL/min Estimated GFR (MDRD) > 60 BUN/Creatinine Ratio 20.00 Glucose 76 (74-105) mg/dL Calcium 8.5 (8.4-10.2) mg/dl Total Bilirubin 1.3 H (0.2-1.0) mg/dL AST 16 (10-42) IU/L ALT 14 (10-60) IU/L Alkaline Phosphatase 38 L (42-121) IU/L C-Reactive Protein 0.5 (0.0-1.3) mg/dL Total Protein 6.6 L (6.7-8.2) g/dl Albumin 4.0 (3.2-5.5) g/dl Globulin 2.6 Albumin/Globulin Ratio 1.54 Amylase 61 (28-100) U/L Lipase 28 (22-51) U/L Urine Color (YELLOW) Urine Appearance (CLEAR) Urine pH (5.0-9.0) Ur Specific Crawford (1.005-1.030) Urine Protein (NEGATIVE) Urine Glucose (UA) (NEGATIVE) Urine Ketones (NEGATIVE) Urine Occult Blood (NEGATIVE) Urine Nitrite (NEGATIVE) Urine Bilirubin (NEGATIVE) Urine Urobilinogen (0.2-1.0) mg/dL Ur Leukocyte Esterase (NEGATIVE) Urine RBC /HPF Urine WBC (0-5/HPF) /HPF Ur Epithelial Cells /HPF Urine Bacteria (0-FEW/HPF) /HPF Urine Mucus /LPF Urine HCG, Qual 06/30/18 06/30/18 Range/Units 10:16 10:16 WBC (5.0-10.0) 10^3/uL RBC (4.2-5.4) 10^6/uL Hgb (12.0-16.0) g/dL Hct (37.0-47.0) % MCV (80-100) fL MCH (27.0-34.0) pg MCHC (33.0-35.0) g/dL Plt Count (150-450) 10^3/uL Neut % (Auto) (42.2-75.2) % Lymph % (Auto) (20.5-50.1) % Coryell % (Auto) (2-8) % Eos % (Auto) (1.0-3.0) % Baso % (Auto) (0.0-1.0) % Sodium (135-145) mmol/L Potassium (3.6-5.0) mmol/L Chloride (101-111) mmol/L Carbon Dioxide (21.0-31.0) mmol/L Anion Gap BUN (7-18) mg/dL Creatinine (0.6-1.3) mg/dL Est Cr Clr Drug Dosing mL/min Estimated GFR (MDRD) BUN/Creatinine Ratio Glucose (74-105) mg/dL Calcium (8.4-10.2) mg/dl Total Bilirubin (0.2-1.0) mg/dL AST (10-42) IU/L ALT (10-60) IU/L Alkaline Phosphatase (42-121) IU/L C-Reactive Protein (0.0-1.3) mg/dL Total Protein (6.7-8.2) g/dl Albumin (3.2-5.5) g/dl Globulin Albumin/Globulin Ratio Amylase (28-100) U/L Lipase (22-51) U/L Urine Color Yellow (YELLOW) Urine Appearance Clear (CLEAR) Urine pH 7.5 (5.0-9.0) Ur Specific Crawford 1.020 (1.005-1.030) Urine Protein Negative (NEGATIVE) Urine Glucose (UA) Negative (NEGATIVE) Urine Ketones Negative (NEGATIVE) Urine Occult Blood Moderate H (NEGATIVE) Urine Nitrite Negative (NEGATIVE) Urine Bilirubin Negative (NEGATIVE) Urine Urobilinogen 0.2 (0.2-1.0) mg/dL Ur Leukocyte Esterase Negative (NEGATIVE) Urine RBC 5-10 H /HPF Urine WBC 0-5 (0-5/HPF) /HPF Ur Epithelial Cells Moderate H /HPF Urine Bacteria Moderate H (0-FEW/HPF) /HPF Urine Mucus Moderate H /LPF Urine HCG, Qual Negative Meds: Medications Generic Name Dose Route Start Last Admin Trade Name Freq PRN Reason Stop Dose Admin Sodium Chloride 10 ml 06/30/18 09:58 06/30/18 10:16 Saline Flush FLUSH 10 ml ASDIRECTED PRN Administration Keep Vein Open - Re-Assessments/Exams Free Text/Narrative Re-Assessment/Exam: 06/30/18 10:56 Pt has findings of bacterial vaginosis, which she has had in the past as well. She denies risk of further STD exposure. I do not find her Hx, exam, or lab results to be suggestive of appendicitis, and have discussed the results and findings with the pt. Departure - Departure Time of Disposition: 10:54 Disposition: Home, Self-Care 01 Condition: Good Clinical Impression: Bacterial vaginosis Abdominal pain Qualifiers: Abdominal location: right lower quadrant Qualified Code(s): R10.31 - Right lower quadrant pain - Discharge Information *PRESCRIPTION DRUG MONITORING PROGRAM REVIEWED*: No *COPY OF PRESCRIPTION DRUG MONITORING REPORT IN PATIENT ROSETTA: No Instructions: Bacterial Vaginosis, Abdominal Pain, Adult, [id number] Forms: ED Department Discharge Additional Instructions: Rx: Metronidazole 500mg Drink plenty of water. Follow up in clinic in 7 to 10 days for recheck. Return to ER if worse at any time. - My Orders Last 24 Hours: My Active Orders 06/30/18 09:58 Peripheral IV Care [RC] . DIRECTED Sodium Chloride 0.9% [Saline Flush] 10 ml FLUSH ASDIRECTED PRN Peripheral IV Insertion Adult [OM.PC] Stat 06/30/18 10:16 CHLAMYDIA AND GONORRHEA BY TMA Routine - Assessment/Plan Last 24 Hours: My Active Orders 06/30/18 09:58 Peripheral IV Care [RC] . DIRECTED Sodium Chloride 0.9% [Saline Flush] 10 ml FLUSH ASDIRECTED PRN Peripheral IV Insertion Adult [OM.PC] Stat 06/30/18 10:16 CHLAMYDIA AND GONORRHEA BY TMA Routine I have read and agree with the documentation that has been completed regarding this visit. By signing this record, I attest that the documentation was completed in my physical presence and is an accurate record of the encounter.
== END 2018-06-30 11:04 | disposition home or self-care (01) ==
LOC: DL.ED 09:33
DX: N76.0 Acute vaginitis (principal); B96.89 Other specified bacterial agents as the cause of diseases classified elsewhere; F41.9 Anxiety disorder, unspecified; F32.9 Major depressive disorder, single episode, unspecified; Z79.899 Other long term (current) drug therapy; Z87.891 Personal history of nicotine dependence
CPT/HCPCS: 36415; 80053; 81001; 81025; 82150; 83690; 85025; 86140; 87491; 87591; 99284

== ENCOUNTER 2018-10-30 05:34 | Day surgery (SDC) | payer MEDICAID ==
[2018-10-30] MEDS ORDERED: Midazolam 1 MG/ML 2 ML SDV IV ONE (05:35)
[2018-10-30] MEDS ORDERED: fentaNYL 100 MCG/2 ML SDV IV ONE (05:35)
[2018-10-30] MEDS ORDERED: Midazolam 1 MG/ML 2 ML SDV ONE (06:14)
[2018-10-30] MEDS ORDERED: fentaNYL 100 MCG/2 ML SDV ONE (06:14)
[2018-10-30] MEDS: Dextrose 5%-0.45% NaCl 1,000 ML IV SCH (06:23)
[2018-10-30] MEDS: fentaNYL 100 MCG/2 ML SDV IV ONE ×2 (06:41→06:42)
[2018-10-30] MEDS: Midazolam 1 MG/ML 2 ML SDV IV ONE ×5 (06:42→06:48)
--- NOTE | 2018-10-30 10:36 | OR ---
DATE: 10/30/2018 PROCEDURES: Total colonoscopy and terminal ileoscopy. INSTRUMENT USED: PCF-H190DL Olympus video colonoscope. PREMEDICATIONS: Fentanyl 100 mcg intravenous, Versed 3 mg intravenous, nasal O2 cannula. The procedure was done under pulse oximetry, BP recording, and groundwater monitoring technician. INDICATION: The patient with chronic intermittent diarrhea and rectal bleeding unexplained and not responsive to medical measures. Colonoscopic examination is done for detection of any polypoid lesions and removal, endoscopic hemostasis therapy if needed. DESCRIPTION OF PROCEDURE: Initial rectal exam was unremarkable. Rigid anoscopy was normal. The colonoscope was passed with ease up to and beyond the ileocecal junction to visualize normal-appearing terminal ileum. Photographs were taken of the terminal ileum and cecum. No bleeding was noted from any of the visualized areas at the commencement of the examination. The bowel preparation was found to be adequate, P[place]mont scale 3. No stricture. No vascular ectasia. No large isolated ulcerations seen. No evidence of diffuse inflammatory bowel disease in the form of friability, contact bleeding, or ulcerations. No polyp or tumor mass identified. Probing the proximal sides of folds and flexures using adequate distention and clearing up the stool material, withdrawal of the scope was made, cecum to rectum time over 6 minutes. No bleeding was noted from any of the visualized areas at the conclusion of examination. IMPRESSION: Normal study. The patient tolerated the procedure well. [facility] /[id number]
== END 2018-10-30 08:59 | disposition home or self-care (01) ==
LOC: DL.ENDO 05:34
PROVIDERS: ATTEND Internal Medicine Gastroenterology
DX: R19.7 Diarrhea, unspecified (principal); K62.5 Hemorrhage of anus and rectum; F41.1 Generalized anxiety disorder
CPT/HCPCS: G0121; J2250; J3010; J7042

== ENCOUNTER 2019-11-09 14:20 | Emergency (ER) | payer SELFPAY ==
[2019-11-09] MEDS ORDERED: predniSONE 20 MG Tab PO ONE (14:51)
[2019-11-09] MEDS ORDERED: Meclizine 12.5 MG Tab PO ONE (14:51)
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
== END 2019-11-09 15:04 | disposition home or self-care (01) ==
LOC: DL.ED 14:20
DX: J01.90 Acute sinusitis, unspecified (principal); R42 Dizziness and giddiness; H55.00 Unspecified nystagmus; E66.9 Obesity, unspecified; Z68.32 Body mass index [BMI] 32.0-32.9, adult
CPT/HCPCS: 99283; A9270; J7512

== ENCOUNTER 2021-07-02 14:21 | Emergency (ER) | payer BC | END 2021-07-02 15:25 | disposition left against medical advice (07) | LOC: DL.ED 14:21 | DX: Z53.21 Procedure and treatment not carried out due to patient leaving prior to being seen by health care provider (principal) ==

== ENCOUNTER 2022-07-01 19:12 | Emergency (ER) | payer BC ==
[2022-07-01] MEDS ORDERED: Take Home: Doxycycline 100 MG Cap, 4 Cap Pack PO ONE (20:43)
== END 2022-07-01 21:07 | disposition home or self-care (01) ==
LOC: DL.ED 19:12
DX: L73.2 Hidradenitis suppurativa (principal); E66.9 Obesity, unspecified; Z68.34 Body mass index [BMI] 34.0-34.9, adult
CPT/HCPCS: 87070; 87077; 87186; 87205; 99283; A9270

== ENCOUNTER 2022-07-29 17:03 | Emergency (ER) | payer BC | END 2022-07-29 18:50 | disposition left against medical advice (07) | LOC: DL.ED 17:03 | DX: Z53.21 Procedure and treatment not carried out due to patient leaving prior to being seen by health care provider (principal) ==

== ENCOUNTER 2022-10-22 15:59 | Emergency (ER) | payer BC ==
[2022-10-22] MEDS ORDERED: Ketorolac 30 MG/ML SDV IM ONE (16:43)
[2022-10-22] MEDS ORDERED: Dexamethasone 4 MG/ML SDV IM ONE (16:43)
[2022-10-22] MEDS ORDERED: Clindamycin HCl 150 MG Cap PO ONE (16:43)
== END 2022-10-22 16:53 | disposition home or self-care (01) ==
LOC: DL.ED 15:59
DX: L02.415 Cutaneous abscess of right lower limb (principal); Z68.38 Body mass index [BMI] 38.0-38.9, adult; E66.9 Obesity, unspecified; Z86.16 Personal history of COVID-19
CPT/HCPCS: 81025; 96372; 99282; 99283; A9270-GY; J1100; J1885